=== PATIENT | female | born 1990 | race Asian ===

== ENCOUNTER 2022-06-10 09:06 | Emergency (ER) | payer OTHER ==
--- NOTE | 2022-06-10 09:29 | ED Physician Documentation ---
PD HPI ABD PAIN - Stated complaint Stated Complaint: N/V/D - Chief complaint Chief Complaint: Abd Pain - History obtained from History obtained from: Patient - History of Present Illness Timing - onset: Last night Timing - details: Abrupt onset (The patient states abrupt onset of nausea with near vomiting and decreased appetite associated with diarrhea frequently and diffuse intermittent cramping abdominal pain. She states the pain is quite intense at times.) Quality: Cramping, Aching, Pain. No: Fullness/distended Location: All over / everywhere Improved by: Meds (tried PeptoBismol without improvement. Took Tyleonol about 3 am and pain seemed modestly better and reprised about 6 am as badly.). No: Laying still, Vomiting Worsened by: Eating, Moving. No: Palpation Associated symptoms: Fever (subjective), Nausea, Diarrhea, Loss of appetite. No: Vomiting, Constipation, Dysuria, Near syncope / syncope, Vaginal bleeding, Vaginal dc Similar symptoms before: Has not had sx before Recently seen: Clinic ([facility] and referred to ER for further evaluation. Given Zofran ODT there. No pain meds such as Toradol attempted. Exam there was without focal tenderness nor distension. Had POC COVID and Flu tests that were negative.), Other (her 1 1/2 year old at home with diarrhea and some vomiting the past 2 days, starting to taper symptoms.) Review of Systems Constitutional: reports: Fever (subjective), Chills Nose: denies: Rhinorrhea / runny nose, Congestion Throat: denies: Sore throat Respiratory: denies: Cough GI: reports: Abdominal Pain, Nausea, Diarrhea. denies: Vomiting, Hematemesis, Bloody / black stool : denies: Dysuria Neurologic: reports: Generalized weakness. denies: Near syncope, Headache PD PAST MEDICAL HISTORY - Past Medical History Cardiovascular: None Respiratory: None Endocrine/Autoimmune: None - Past Surgical History Past Surgical History: No - Present Medications Home Medications: Ambulatory Orders Medication Instructions Recorded Confirmed Diphenoxylate/Atropine [Lomotil] 1 each PO QID PRN #12 tablet 06/10/22 HYDROcod/ACETAM 5/325 [[place] 5/325] 1 ea PO Q6H PRN #10 tablet 06/10/22 Ondansetron Odt [Zofran] 4 mg TL Q6H PRN #10 tablet 06/10/22 - Allergies Allergies/Adverse Reactions: Allergies Allergy/AdvReac Type Severity Reaction Status Date / Time No Known Drug Allergies Allergy Verified 06/10/22 09:12 PD ED PE NORMAL - Vitals Vital signs reviewed: Yes - General General: Alert and oriented X 3, Well developed/nourished, Other (appears uncomfortable in waves. ) - HEENT HEENT: Pharynx benign - Neck Neck: Supple, no meningeal sign, No adenopathy - Cardiac Cardiac: RRR, No murmur - Respiratory Respiratory: Clear bilaterally - Abdomen Abdomen: Soft, Non tender (no focal area of tenderness to palpation nor percussion. ), Non distended. No: Normal bowel sounds (decreased) - Female Female : Deferred - Rectal Rectal: Deferred - Back Back: No CVA TTP - Derm Derm: Normal color, Warm and dry Results - Vitals Vitals: Vital Signs - 24 hr 06/10/22 06/10/22 06/10/22 09:09 11:11 13:00 Temperature 36.7 C 36.6 C Heart Rate 88 86 82 Respiratory 14 14 16 Rate Blood Pressure 105/68 108/66 92/65 O2 Saturation 100 100 100 Oxygen O2 Source Room air - Labs Labs: Laboratory Tests 06/10/22 06/10/22 06/10/22 09:15 09:15 11:01 WBC 12.9 H RBC 4.89 Hgb 12.8 Hct 40.6 MCV 83.0 MCH 26.2 L MCHC 31.5 L RDW 14.1 Plt Count 187 Neut # (Auto) [employer] Lymph # (Auto) [employer] [place] # (Auto) [employer] Eos # (Auto) [employer] Baso # (Auto) [employer] Absolute Nucleated RBC [employer] Total Counted 100 Band Neuts % (Manual) 9 Reactive Lymphs % (Man) 2 Abnorm Lymph % (Manual) 0 Nucleated RBC % [employer] Neutrophils # (Manual) 11.7 H Lymphocytes # (Manual) 0.4 L Monocytes # (Manual) 0.5 Eosinophils # (Manual) 0.3 Basophils # (Manual) 0.0 Manual Slide Review Indicated Sodium 138 Potassium 3.9 Chloride 103 Carbon Dioxide 26 Anion Gap 9.0 BUN 22 H Creatinine 0.5 Estimated GFR (MDRD) 141 Glucose 105 H Calcium 8.9 Total Bilirubin 1.1 H AST 17 ALT 14 Alkaline Phosphatase 49 Total Protein 8.3 H Albumin 4.3 Globulin 4.0 Albumin/Globulin Ratio 1.1 Lipase 34 Urine Color DARK YELLOW Urine Clarity CLEAR Urine pH 6.0 Ur Specific [place] >=1.030 H Urine Protein NEGATIVE Urine Glucose (UA) NEGATIVE Urine Ketones >=80 H Urine Occult Blood NEGATIVE Urine Nitrite NEGATIVE Urine Bilirubin NEGATIVE Urine Urobilinogen 0.2 (NORMAL) Ur Leukocyte Esterase NEGATIVE Ur Microscopic Review NOT INDICATED Urine Culture Comments NOT INDICATED Urine HCG, Qual NEGATIVE PD Medical Decision Making - ED course Complexity details: reviewed results (blood tests show elevated WBC of 12K. H/H normal. Chemistries okay except bili 1.1 (minimally elevated). ), re-evaluated patient (feeling better with IV fluids, antiemetics, pain meds. able to take water and some crackers, though mild increase nausea after crackers. ), considered differential (abrupt onset with nonfocal/nontender abd exam. Seems likely viral GE. Low suspicion for appy/james/acute abd, so CT abd considered and I did not feel needed. ), d/w patient Reviewed Lab Results: normal labs of chemistries, lytes, blood count. ED course: The patient had abrupt onset of nausea with near vomiting but no true vomiting associated with repeated watery stools and diffuse crampy abdominal pain onset last night and has continued through the night. Her 1-1/2-year-old daughter had similar diarrhea and less appetite over the last 2 days. The child symptoms are tapering. The patient believes she likely got what ever her child has as a "stomach flu". Examination here does not show any focal tenderness in in fact I did not elicit any pain with palpation in particular right lower quadrant or right upper quadrant. Clinically very low suspicion therefore for appendicitis or gallbladder. We can check her electrolytes and chemistry panel to ensure she is not had electrolyte disturbance given her volume loss of diarrhea and less intake. I therefore ordered a basic your abdominal chemistry panel as well as a blood count. We can check urine and test as well though that the sound less likely related given her predominantly GI symptoms. To help with her symptoms, we will started IV and get some fluids as well as more antiemetic as the ODT from the clinic was not really helping. We can also address her pain with Toradol and low-dose morphine. Imodium for the diarrhea once her p.o. nausea is improved. At this point I do not see need for imaging as there is not a focality of tenderness or pain to suggest a specific organ process such as gallbladder or appendix. We can reassess the abdominal exam with more fluids and medications given first. Departure - Departure Disposition: 01 Home, Self Care Clinical Impression: Gastroenteritis, Nausea vomiting and diarrhea Abdominal pain Qualifiers: Abdominal location: generalized Qualified Code(s): R10.84 - Generalized abdominal pain Condition: Stable Record reviewed to determine appropriate education?: Yes Instructions: ED Gastroenteritis Viral Follow-Up: Jered Duron ARNP [Primary Care Provider] - Prescriptions: Diphenoxylate/Atropine [Lomotil] 1 each PO QID PRN #12 tablet PRN Reason: Diarrhea HYDROcod/ACETAM 5/325 [[place] 5/325] 1 ea PO Q6H PRN #10 tablet PRN Reason: Pain Ondansetron Odt [Zofran] 4 mg TL Q6H PRN #10 tablet PRN Reason: Nausea / Vomiting Comments: I presume your symptoms relate to a viral "stomach flu" (viral gastroenteritis). I would anticipate having some symptoms still for another day or 2. Presumably will be able to control them with medications for nausea, diarrhea, cramps. Small frequent fluids. [place] food with small amounts initially and progress as tolerated but I would avoid spicy or greasy foods or such for a couple of days. Use ondansetron every 4-6 hours if needed for nausea. Lomotil if needed for diarrhea as prescribed. Tylenol every 4-6 hours if needed for pain. Avoid NSAIDs at this point as it can further irritate your stomach. At hydrocodone every 6 hours if needed for stomach cramps. I would anticipate not needing this for very long. Recheck if not improved over the next 2 to 3 days and resolved. Return to the ER if persistent symptoms despite the medications or you develop a more localized area of pain and tenderness, fevers, bloody stool, worse pain etc. Is sent your prescriptions to [facility] pharmacy in [place]. I am prescribing a short course of narcotic pain medication for you. These are potentially dangerous and addictive medications that should be used carefully. These medications may constipate you. Take an [id number] stool softener such as docusate twice daily with plenty of water while taking these medications. If you go 24 hours without a bowel movement, take [id number] MiraLAX, per package instructions. Do not drink or drive while taking these medications. If you received narcotic or sedating medications while in the emergency department do not drive for 24 hours. Store this medication in a safe, secure place and out of reach of children. It is a violation of federal law to give or sell this medication to another person or to use in a manner other than prescribed. The ED will not refill narcotic prescriptions, including prescriptions lost or stolen. You can dispose of unwanted medications at the [facility]'s office or at several pharmacies such as [facility]. Discharge Date/Time: 06/10/22 13:53
[2022-06-10 09:34] LABS: BASOPHILS % (AUTO) 0.1 %; EOSINOPHILS % (AUTO) 0.2 %; HCT - HEMATOCRIT 40.6 % (37.0-47.0); HGB - HEMOGLOBIN 12.8 g/dL (12.0-16.0); LYMPHOCYTES % (AUTO) 3.1 %; MEAN CORPUSCULAR HEMOGLOBIN 26.2 pg (27.0-31.0); MEAN CORPUSCULAR HGB CONC 31.5 g/dL (32.0-36.0); MONOCYTES % (AUTO) 4.4 %; PLT - PLATELET COUNT 187 10^3/uL (130-450); RED BLOOD COUNT 4.89 10^6/uL (4.20-5.40); RED CELL DISTRIBUTION WIDTH 14.1 % (12.0-15.0); WHITE BLOOD COUNT 12.9 x10^3/uL (4.8-10.8)
[2022-06-10 09:36] LABS: SLIDE REVIEW? Indicated
[2022-06-10 09:38] LABS: ABNORMAL LYMPHS % (MANUAL) 0 %
[2022-06-10] MEDS ORDERED: SODIUM CHLORIDE 0.9% 1,000 ML IV STA (09:41)
[2022-06-10] MEDS ORDERED: LOPERAMIDE 2 MG CAPSULE PO STA (09:41)
[2022-06-10] MEDS ORDERED: KETOROLAC 15 MG/ML VIAL IVP STA (09:41)
[2022-06-10] MEDS ORDERED: ONDANSETRON 4 MG/2 ML VIAL IVP STA (09:41)
[2022-06-10] MEDS ORDERED: MORPHINE 2 MG/ML CARPUJECT IVP STA (09:41)
[2022-06-10 09:46] LABS: ALBUMIN 4.3 g/dL (3.2-5.5); ALBUMIN/GLOBULIN RATIO 1.1 (1.0-2.2); BILIRUBIN,TOTAL 1.1 mg/dL (0.2-1.0); CALCIUM 8.9 mg/dL (8.5-10.3); CREATININE 0.5 mg/dL (0.4-1.0); POTASSIUM 3.9 mmol/L (3.5-5.0); TOTAL PROTEIN 8.3 g/dL (6.7-8.2)
[2022-06-10 10:06] LABS: BAND NEUTROPHILS % (MANUAL) 9 %; EOSINOPHILS # (MANUAL) 0.3 10^3/uL (0-0.7); LYMPHOCYTES # (MANUAL) 0.4 10^3/uL (1.5-3.5); LYMPHOCYTES % (MANUAL) 1 %; MONOCYTES # (MANUAL) 0.5 10^3/uL (0.0-1.0); NEUTROPHILS # (MANUAL) 11.7 10^3/uL (1.5-6.6); REACTIVE LYMPHS % (MANUAL) 2 %
[2022-06-10 11:09] LABS: BILIRUBIN,URINE NEGATIVE (NEGATIVE); GLUCOSE, URINE (UA) NEGATIVE (NEGATIVE); KETONES,URINE (UA) >=80 mg/dL (NEGATIVE); LEUKOCYTE ESTERASE, URINE NEGATIVE (NEGATIVE); NITRITE,URINE NEGATIVE (NEGATIVE); OCCULT BLOOD,URINE NEGATIVE (NEGATIVE); PROTEIN,URINE NEGATIVE (NEGATIVE); UROBILINOGEN,URINE 0.2 (NORMAL) E.U./dL (NORMAL)
[2022-06-10 11:12] LABS: CLARITY,URINE CLEAR (CLEAR); HCG UR QUAL NEGATIVE
[2022-06-10] MEDS ORDERED: DROPERIDOL 5 MG/2 ML VIAL IVP STA (12:36)
[2022-06-10 13:10] VITALS: BP 92/65
[2022-06-10] MEDS ORDERED: diphenhydrAMINE INJ 50 MG/ML VIAL IVP STA (13:12)
== END 2022-06-10 13:53 | disposition home or self-care (01) ==
LOC: ED 09:06
DX: K52.9 Noninfective gastroenteritis and colitis, unspecified (principal); R10.84 Generalized abdominal pain
CPT/HCPCS: 36415; 80053; 81003; 81025; 83690; 85025; 96361; 96374; 96375; 99284; A9270; J1200; 81001; 87086